=== PATIENT | female | born 1975 | race Two or more races ===

== ENCOUNTER → 2024-07-04 | Outpatient (CLI) | payer MEDICAID, SELFPAY ==
--- NOTE | 2024-07-04 10:53 | XR_ITS ---
Examination: Scoliosis survey 2, views. Technique: AP standing thoracic, AP standing lumbar spine, two views. Exam date and time: July 04, 2024 1135 hrs. Indications: Back pain for years Findings: Thoracic dextroscoliosis 7 degrees No thoracic or lumbar fracture No segmentation anomalies Mild osteopenia Intact pedicles Impression: Thoracic dextroscoliosis 7 degrees
== END | disposition home or self-care (01) ==
PROVIDERS: PCP Physician Assistant; Referring Provider Nurse Practitioner Family; Visit Provider Nurse Practitioner Family
DX: M41.84 Other forms of scoliosis, thoracic region (principal)
CPT/HCPCS: 72082

== ENCOUNTER 2024-10-31 11:00 | Outpatient (RCR) | payer MEDICAID, SELFPAY ==
--- NOTE | 2024-10-11 11:08 | PTNOTE_ITS ---
PT OP Initial Eval Patient Information Outpatient Physical Therapy Treatment Date: 10/11/24 Visit Reasons: Cervical Radiculopathy Medical Diagnosis: M47.22 Treatment Dx #1: neck pain Start of Care: 10/11/24 Date of Onset: 5 yrs ago Smoking Status Smoking Status: Never smoker Initial Assessment Subjective: Pt is 49 yr old malian speaking female who reports long Hx of neck pain that is worse at night. She points to the upper back to the base of skull as site of pain. This pain limits sleeping, strength OH, lifting things. PMH: none other than this Imaging: Xray of C/S in EMR Early degenerative disc disease C5-C6?, Mild bilateral neural foraminal stenosis at the C5-C6 level Pt goal: to get rid of the pain Objective: C/S AROM: ? Ext 50% with pain at end-range ? Flexion full with slight onset of ssx ? L rotation: full ? R rotation: full ? B SB: 25 deg ? C/S compression: no change ? Distraction: no change ? TTP: moderate of lower C/S paraspinals around C4-7 and UT?s, T1-4 paraspinals ? B shoulder AROM: full FF ? Hamilton's reflex: negative ? flexion rotation test: negative for C1-2 limitations Posture: fwd head and shoulder Assessment: Pt presents with myofascial tenderness of lower C/S and limited extension ROM consistent with Xray results. Pt has fwd head and shoulder posture that is likely contributing to the pain. Pt requires skilled therapy to meet goals and has fair rehab potential. [employer] and [employer] Goals 1. Ind with HEP ? 2. Decreased TTP of lower C/S and upper T/S from mod to min ? 3. Pt will sit with neutral head and shoulder posture x5' Treatment Plan 1. Manual therapy ? 2. Therex ? 3. Modalities as indicated, mechanical traction, estim, moist he at, ice Frequency and Duration: 2x a week for 12 Rx sessions plus evaluation Certification Dates: 10/11/24 to 01/09/25 Procedure Charges OP PT Eval Mod Complex 30 minutes: Yes
--- NOTE | 2024-10-17 11:09 | PT.ODAYNRPT ---
PT Outpatient Daily Note OP Daily Note Outpatient Physical Therapy Treatment Date: 10/17/24 Visit Reasons: Cervical Radiculopathy Subjective: Pt c/o neck pain and pain in upper traps. Pt mentioned notivcing that she has bad posture when sitting and has been trying to correct it. Objective: Please see flow sheet for ther ex list. Assessment: Pt demonstrates forward stooped posture in sitting and forward had, corrects post verbal cues. Plan: Assess response to treatment. Length of Time (minutes) of Treatment: 30 Minutes Procedure Charges Therapeutic Exercise 30 minutes: Yes
--- NOTE | 2024-10-19 13:20 | PT.ODAYNRPT ---
PT Outpatient Daily Note OP Daily Note Outpatient Physical Therapy Treatment Date: 10/19/24 Visit Reasons: Cervical Radiculopathy Subjective: Pt c/o soreness post last PT session and c/o neck and upper trap pain today. Objective: Please see flow sheet for ther ex list. Assessment: Pt demonstrates improved technique with cervical retraction exercise. Plan: Continue with poC. Length of Time (minutes) of Treatment: 30 Minutes Procedure Charges Therapeutic Exercise 30 minutes: Yes
--- NOTE | 2024-10-31 13:09 | PT.ODAYNRPT ---
PT Outpatient Daily Note OP Daily Note Outpatient Physical Therapy Treatment Date: 10/31/24 Visit Reasons: Cervical Radiculopathy Subjective: Pt point at the suboccipitals and lower c/S as sites of pain Objective: See F/S for therex MHP: x5' C/S Mechanical traction x7' at 12 lbs Assessment: Good demo of levator scap stretches as part of HEP Plan: Continue per POC Length of Time (minutes) of Treatment: 30 Minutes Procedure Charges Therapeutic Exercise 30 minutes: Yes
== END 2024-11-01 23:59 | disposition home or self-care (01) ==
LOC: CPTX 11:00
PROVIDERS: PCP Nurse Practitioner Family; Referring Provider Nurse Practitioner Family; Visit Provider Nurse Practitioner Family
DX: M50.122 Cervical disc disorder at C5-C6 level with radiculopathy (principal); M48.02 Spinal stenosis, cervical region
CPT/HCPCS: 97110; 97162

== ENCOUNTER 2024-11-08 10:21 | Outpatient (RCR) | payer MEDICAID, SELFPAY ==
--- NOTE | 2024-11-08 12:38 | PT.ODAYNRPT ---
PT Outpatient Daily Note OP Daily Note Outpatient Physical Therapy Treatment Date: 11/08/24 Visit Reasons: Cervical radiculopathy Subjective: Pt point at the suboccipitals and lower c/S as sites of pain Objective: See F/S for therex MHP: x5' C/S MT: [facility] C/S x5' Mechanical traction x7' at 12 lbs Assessment: Good demo of levator scap stretches as part of HEP Plan: Continue per POC Length of Time (minutes) of Treatment: 30 Minutes Procedure Charges Therapeutic Exercise 30 minutes: Yes
== END 2024-12-02 23:59 | disposition home or self-care (01) ==
LOC: CPTX 10:21
PROVIDERS: PCP Nurse Practitioner Family; Referring Provider Nurse Practitioner Family; Visit Provider Nurse Practitioner Family
DX: M47.22 Other spondylosis with radiculopathy, cervical region (principal)
CPT/HCPCS: 97110

== ENCOUNTER 2025-01-01 08:30 | Outpatient (RCR) | payer MEDICAID, SELFPAY ==
--- NOTE | 2024-12-25 13:29 | PT.ODAYNRPT ---
PT Outpatient Daily Note OP Daily Note Outpatient Physical Therapy Treatment Date: 12/25/24 Visit Reasons: Back pain Subjective: Less pain overall but Pt point sat the suboccipitals and lower c/S as sites of pain Objective: See F/S for therex MHP: x5' C/S MT: [facility] C/S x5' Assessment: Good demo of levator scap stretches and chin tucks as part of HEP Plan: Continue per POC Length of Time (minutes) of Treatment: 30 Minutes Procedure Charges Therapeutic Exercise 30 minutes: Yes
--- NOTE | 2025-01-01 09:51 | PT.ODAYNRPT ---
PT Outpatient Daily Note OP Daily Note Outpatient Physical Therapy Treatment Date: 01/01/25 Visit Reasons: Back pain Subjective: Pt reports neck is doing about the same. Pt mentioned that she still has pain, the days she comes to PT she feels a little better but only lasts a few hours. Objective: Please see flow sheet for ther ex list. Assessment: Poor intervention progression due to pain response. Plan: Continue with pOC. Waiting on authorization to continue with PT. Length of Time (minutes) of Treatment: 30 Minutes Procedure Charges Therapeutic Exercise 30 minutes: Yes
== END 2025-01-01 23:59 | disposition home or self-care (01) ==
LOC: CPTX 08:30
PROVIDERS: PCP Nurse Practitioner Family; Referring Provider Nurse Practitioner Family; Visit Provider Nurse Practitioner Family
DX: M47.22 Other spondylosis with radiculopathy, cervical region (principal)
CPT/HCPCS: 97110

== ENCOUNTER → 2025-02-20 | Outpatient (CLI) | payer MEDICAID, SELFPAY ==
--- NOTE | 2025-02-20 | XR_ITS ---
Examination: Diagnostic digital mammography, bilateral Computer aided detection 3-D breast Tomosynthesis, bilateral Date and time of exam: February 20, 2025 1031 hours INDICATIONS: Bilateral breast nodules on ultrasound examination April 18, 2019 Technique: Nonmagnified MLO, CC views of the breasts to been obtained, reconstructed from 3-D Tomosynthesis images. R2 computer aided detection program utilized for evaluation of suspicious masses and/or abnormal calcifications. 3-D Tomosynthesis images obtained. Findings: The breasts are heterogeneously dense, which may obscure small masses Numerous bilateral circumscribed nodules are noted, the largest 23 mm in the 12:00 position left breast, which may represent cysts Impression: BI-RADS Category 0: Incomplete: Need additional imaging evaluation Recommend follow-up bilateral breast sonography to confirm bilateral benign breast cysts.
--- NOTE | 2025-02-20 10:36 | XR_ITS ---
Examination: Breast ultrasound complete, bilateral Date and time of exam: February 20, 2025 1053 hours INDICATIONS: Right breast nodules on ultrasound right breast April 18, 2019 Technique: Real-time grayscale ultrasonographic imaging bilateral breasts, including all 4 quadrants as well as nipple retroareolar and axillary regions. Findings: Sonographic images right breast Benign cysts 3:00 circumscribed 4 x 5 mm 4:00 nodule circumscribed 5 x 6 mm 10:00 nodule circumscribed 11 x 9 mm 11:00 nodule circumscribed 18 x 13 mm Sonographic images left breast Benign cysts No solid nodules Smaller cysts bilaterally IMPRESSION: Category 3: Probably benign findings One additional continued 6 month right breast sonogram follow-up is needed to document stability of multiple solid nodules right breast
== END | disposition home or self-care (01) ==
LOC: CDIM 10:17
PROVIDERS: Referring Provider Physician Assistant Medical; Visit Provider Physician Assistant Medical
DX: N63.15 Unspecified lump in the right breast, overlapping quadrants (principal); N63.14 Unspecified lump in the right breast, lower inner quadrant; N63.11 Unspecified lump in the right breast, upper outer quadrant; N60.02 Solitary cyst of left breast; N60.01 Solitary cyst of right breast
CPT/HCPCS: 76641; 77062; 77066; G0279